=== PATIENT | male | born 1980 | race Two or more races ===

== ENCOUNTER 2019-10-04 09:38 | Emergency (ER) | payer MEDICAID ==
[~2019-10-04] VITALS: Ht 165.1 cm; Wt 67.9 kg
[2019-10-04 09:47] VITALS: BP 154/111
[2019-10-04] MEDS ORDERED: KETOROLAC 30 MG/1 ML ONE (10:08)
--- NOTE | 2019-10-04 10:14 | NUR ---
TORADOL PER MAR FOR LBP. PT TO XR.
[2019-10-04] MEDS ORDERED: KETOROLAC 30 MG/1 ML IM ONE (10:30)
== END 2019-10-04 11:06 | disposition home or self-care (01) ==
LOC: ED 11:00
DX: S39.012A Strain of muscle, fascia and tendon of lower back, initial encounter (principal); X58.XXXA Exposure to other specified factors, initial encounter; Y93.89 Activity, other specified; Y92.89 Other specified places as the place of occurrence of the external cause; Y99.8 Other external cause status
CPT/HCPCS: 72110; 96372; 99283; J1885